=== PATIENT | male | born 1935 | race Caucasian/White ===

== ENCOUNTER → 2018-05-23 | Outpatient (CLI) | payer OTHER | LOC: BHFA 15:00 | PROVIDERS: ATTEND Internal Medicine Cardiovascular Disease | DX: I25.10 Atherosclerotic heart disease of native coronary artery without angina pectoris (principal); I10 Essential (primary) hypertension ==

== ENCOUNTER 2019-01-03 10:47 | Inpatient (IN) | payer OTHER ==
[2019-01-03] MEDS ORDERED: LR 1,000 ML IV ONE (11:25)
--- NOTE | 2019-01-03 11:37 | PDHPUP ---
History & Physical Update H&P update statement: This history and physical update is based on an assessment of the patient which was completed after admission or registration (within 24 hours), but prior to the surgery/procedure. H&P update: H&P reviewed & patient examined, no change in patient's condition since H&P completed
[2019-01-03] MEDS ORDERED: cefOXitin SODIUM 2 GM in NS 100 ML IV ONE (13:00)
[2019-01-03] MEDS ORDERED: BUPIVACAINE 0.5% 30 ML SDV ONE (15:20)
[2019-01-03] MEDS ORDERED: HEPARIN 1000 UNIT/1 ML MDV ONE (15:20)
[2019-01-03] MEDS ORDERED: ceFAZolin 1 GM/5 ML SYR ONE (15:20)
--- NOTE | 2019-01-03 15:34 | PDANEPAE ---
ANE History of Present Illness colon mass, here for excision ANE Past Medical History - Cardiovascular History Hx Hypertension: Yes Hx Arrhythmias: No Hx Chest Pain: No Hx Coronary Artery / Peripheral Vascular Disease: Yes Hx CHF / Valvular Disease: No Hx Palpitations: No - Pulmonary History Hx COPD: No Hx Asthma/Reactive Airway Disease: No Hx Recent Upper Respiratory Infection: No Hx Oxygen in Use at Home: No Hx Sleep Apnea: No - Neurologic History Hx Cerebrovascular Accident: No Hx Seizures: No Hx Dementia: No - Endocrine History Hx Diabetes: Yes - Renal History Hx Renal Disorders: No - Liver History Hx Hepatic Disorders: No - Neurological & Psychiatric Hx Hx Neurological and Psychiatric Disorders: No - Cancer History Hx Cancer: Yes Cancer History Comment: Bladder - Congenital Disorder History Hx Congenital Disorders: No - Chronic Pain History Chronic Pain: No - Surgical History Prior Surgeries: CABG 2005. Left knee ANE Review of Systems Review of Systems: - Exercise capacity METS (RN): 4 METS ANE Patient History - Allergies Allergies/Adverse Reactions: No Known Allergies Allergy (Verified 12/30/18 11:04) - Home Medications Home Medications: Aspirin [Aspirin 81mg (*)] 81 mg PO HS 11/14/14 [Last Taken 01/02/19] Atorvastatin Calcium [Lipitor 20 mg (*)] 20 mg PO DAILY 11/14/14 [Last Taken 08/12] Metoprolol Succinate Xr [Toprol Xl 25 mg (*)] 25 mg PO DAILY 11/14/14 [Last Taken 01/01/19] Ascorbic Acid [Vitamin C 500 mg (*)] 500 mg PO DAILY 12/30/18 [Last Taken ] Glucosamine Sulfate [Glucosamine Sulfate 500 MG (*)] 500 mg PO DAILY 12/30/18 [ Last Taken 01/01/19] Herbals/Supplements -Info Only 1 ea PO DAILY 12/30/18 [Last Taken 01/01/19] Multivitamins [Multivitamin (*)] 1 each PO DAILY 12/30/18 [Last Taken 01/01/19] Omeprazole 40 mg PO DAILY 12/30/18 [Last Taken 01/02/19] metFORMIN HCL [Glucophage 500 mg (*)] 500 mg PO BIDMEAL 12/30/18 [Last Taken 09/12] prednisoLONE ACET 1% [Pred Forte 1% (*)] 1 drops LEFTEYE DAILY PRN 12/30/18 [ Last Taken 01/02/19] - NPO status NPO Since - Liquids (Date): 01/02/19 NPO Since - Liquids (Time): 20:00 NPO Since - Solids (Date): 01/01/19 NPO Since - Solids (Time): 18:00 - Smoking Hx Smoking Status: Never smoked - Family Anes Hx Family Hx Anesthesia Complications: none ANE Labs/Vital Signs - Labs Result Diagrams: 01/03/19 12:00 01/03/19 12:00 - Vital Signs Blood Pressure: 130/68 Heart Rate: 86 Respiratory Rate: 16 O2 Sat (%): 93 Height: 177.8 cm Weight: 92.533 kg ANE Physical Exam - Airway Neck exam: FROM Mallampati Score: Class 2 Mouth exam: normal dental/mouth exam - Pulmonary Pulmonary: no respiratory distress, no rales or rhonchi - Cardiovascular Cardiovascular: regular rate and rhythym, no murmur, rub, or gallop - ASA Status ASA Status: III ANE Anesthesia Plan Anesthesia Plan: general endotracheal anesthesia Regional Anesthesia: single shot NB Total IV Anesthesia: No
[2019-01-03] MEDS ORDERED: MIDAZOLAM 2 MG/2 ML VIAL IVP ONE (15:37)
[2019-01-03] MEDS ORDERED: MIDAZOLAM 2 MG/2 ML VIAL ONE (15:41)
[2019-01-03] MEDS ORDERED: ROCURONIUM 50 MG/5 ML VIAL ONE ×2 (15:49→16:44)
[2019-01-03] MEDS ORDERED: LIDOCAINE 2% 100 MG/5 ML SYR ONE (15:49)
[2019-01-03] MEDS ORDERED: fentaNYL 100 MCG/2 ML INJ ONE ×2 (15:50→16:42)
[2019-01-03] MEDS ORDERED: PROPOFOL 200 MG/20 ML VIAL ONE (15:50)
[2019-01-03] MEDS ORDERED: GLYCOPYRROLATE 0.2 MG/1 ML VIAL ONE (16:34)
[2019-01-03] MEDS ORDERED: ePHEDrine SULFATE 25 MG/5 ML SYR ONE (16:34)
[2019-01-03] MEDS ORDERED: DEXAMETHASONE 4 MG/ML VIAL ONE (16:34)
[2019-01-03] MEDS ORDERED: PHENYLEPHRINE 10 MG/ML SDV ONE (16:34)
[2019-01-03] MEDS ORDERED: ONDANSETRON 4 MG/2 ML VIAL ONE (16:34)
[2019-01-03] MEDS ORDERED: NALOXONE HCL 0.4 MG/ML INJ IVP PRN ×2 (16:56→17:59)
[2019-01-03] MEDS ORDERED: fentaNYL 100 MCG/2 ML INJ IVP PRN (16:56)
[2019-01-03] MEDS ORDERED: ONDANSETRON 4 MG/2 ML VIAL IVP PRN ×2 (16:56→18:01)
[2019-01-03] MEDS ORDERED: HYDROmorphONE/DILAUDID 2 MG/ML INJ IVP PRN (16:56)
[2019-01-03] MEDS ORDERED: SUGAMMADEX SODIUM 200 MG/2 ML VIAL IVP ONE (17:37)
[2019-01-03] MEDS ORDERED: HYDROmorphONE/DILAUDID 6 MG/30 ML PCA IV PRN (17:59)
--- NOTE | 2019-01-03 17:59 | POSTOPPROG ---
Post Op Note Date of Operation: 01/03/19 Surgeon: Jose Swann Marketing Operations Consultant: Millie Valenzuela Anesthesiologist: Luly Joyner/ Aram Rossi Anesthesia: GET(General Endotracheal) Pre-op Diagnosis: R colon CA Post-op Diagnosis: same Procedure: lap assisted R hemicolectomy Findings: large tatooed tumor in specimen, no gross liver mets Inf/Abcess present in the surg proc area at time of surgery?: No EBL: 50-100 Complications: none Bowel Protocol: Yes Clean Closure Performed: Yes Specimen(s): [email or web address]
[2019-01-03] MEDS ORDERED: prednisoLONE ACET 1% 5 ML OPHT.BTL LEFTEYE PRN (18:01)
[2019-01-03] MEDS ORDERED: D50W 25 GM/50 ML SYR IVP PRN (18:03)
--- NOTE | 2019-01-03 18:05 | POSTANESTH ---
Post Anesthetic Evaluation Cardiovascular Status: Similar to Pre-Op Cond Respiratory Status: Similar to Pre-op Cond. Level of Consciousness/Mental Status: Alert and Oriented Pain Control: Adequate, Prn Tx Ordered Nausea/Vomiting Control: Adequate, Prn Tx Ordered Complications Possibly Related to Anesthesia: None Noted
[2019-01-03] MEDS ORDERED: NS 1,000 ML IV SCH (18:15)
--- NOTE | 2019-01-03 19:24 | PDMN ---
Medical Necessity Medical necessity: Pt meets inpt criteria per MD order and [facility] [place] [id number], Bowel Surgery: Colectomy, Partial, with or without Ostomy, by Laparoscopy, IP only , 3 days, pre-appoved for inpt. 83 y/o w/R colon cancer admitted for lap assisted R hemicolectomy and post-op care.
[2019-01-03] MEDS: INSULIN REGULAR HUMAN 100 UNIT/ML UNIT SC SCH (21:34)
[2019-01-03] MEDS: ASPIRIN 81 MG CHEWABLE TAB PO SCH (21:46)
[2019-01-03] MEDS: DOCUSATE SODIUM 100 MG CAP PO SCH (21:47)
[2019-01-04] MEDS: OXYCODONE/APAP 5/325 TAB PO PRN ×5 (01:35→22:05)
[2019-01-04] MEDS: PANTOPRAZOLE SODIUM 40 MG TAB PO SCH (08:47)
[2019-01-04] MEDS: METOPROLOL SUCCINATE XR 25 MG TAB PO SCH (08:47)
[2019-01-04] MEDS: ASCORBIC ACID 500 MG TAB PO SCH (08:48)
[2019-01-04] MEDS: DOCUSATE SODIUM 100 MG CAP PO SCH ×2 (08:48→22:05)
[2019-01-04] MEDS: ATORVASTATIN CALCIUM 20 MG TAB PO SCH (08:48)
[2019-01-04] MEDS: metFORMIN HCL 500 MG TAB PO SCH ×2 (08:48→18:16)
[2019-01-04] MEDS: INSULIN REGULAR HUMAN 100 UNIT/ML UNIT SC SCH ×4 (08:50→23:47)
--- NOTE | 2019-01-04 09:13 | SOAPPROG ---
SOAP Progress Note Assessment/Plan: Assessment/plan: 83 y/o M s/p lap assisted R alexander colectomy POD #1 Path pending. Pain controlled with Percocet and dilaudid pushes. Advance to clear liquid diet. Advised to go slow. Get oob as tolerated. S: Biggest complaint is back pain from hospital bed. Denies passing gas or BM yet. O: Alert Afebrile VSS RRR CTAB Abdomen soft, attp, incisions cdi, +BS 01/04/19 09:13 Objective: Vital Signs Temp Pulse Resp BP Pulse Ox 37.1 C 64 16 126/54 H 94 01/04/19 08:00 01/04/19 08:47 01/04/19 08:00 01/04/19 08:47 01/04/19 08:00 Laboratory Results 01/04/19 04:43 01/04/19 04:43 01/03/19 01/04/19 01/05/19 05:59 05:59 05:59 Intake Total 1760 Output Total 1020 Balance 740 ICD10 Worksheet Patient Problems: Problems Problem Status Onset Fall Acute
--- NOTE | 2019-01-04 20:18 | GOP ---
[f rep st] OPERATIVE REPORT DATE OF OPERATION: 01/03/2019 SURGEON: Jose Swann MD PREOPERATIVE DIAGNOSIS: Cecal colon cancer. POSTOPERATIVE DIAGNOSIS: Cecal colon cancer. PROCEDURE PERFORMED: Laparoscopic assisted right hemicolectomy. FINDINGS: The patient was found to have a relatively large mass in the right colon with some penetration through the wall. There were no obvious lymph node involvements and no evidence of any liver metastasis. ESTIMATED BLOOD LOSS: Less than 25 cc. DESCRIPTION OF PROCEDURE: The patient was taken to the operating room where he received a satisfactory general endotracheal anesthesia by Dr. Joyner and placed in a supine position, prepped and draped in the usual sterile fashion. Anesthesia was also delivered by Dr. Rossi, who took over for Dr. Joyner partly through the case. A periumbilical incision was made. A Veress needle inserted. Pneumoperitoneum was established. Trocar was introduced. Laparoscope introduced. Good visualization was obtained. Two other trocars were placed in the midline above and below the umbilicus. The right colon was then mobilized. The appendix and terminal ileum were freed up by dividing the lateral peritoneal reflections and that extended up along the right colon and around the hepatic flexure. The right transverse colon was freed up from the omentum all with the Harmonic scalpel until the colon could be elevated up. The right colon mesentery was then divided with the Harmonic scalpel and hemoclips and was mobilized up with care to avoid injury to the duodenum and the ureter. After the mobilization was complete, the short 3 inch incision was made in the midline. A wound protector was used in the right colon and tumor and terminal ileum were brought up through the incision. Any mesenteric dissection was completed with the Harmonic scalpel and the terminal ileum and the right transverse colon were divided with the PRAVEEN staplers and the specimen was sent to pathology. [id number] anastomosis was then made between the terminal ileum and the right colon with a PRAVEEN stapler. Close application of the stapler was used to close the defect which was then reinforced with interrupted 3-0 Vicryl sutures and the staple line was covered with a portion of the mesentery which was closed with a running 3-0 Vicryl suture. This created a good 3 fingerbreadth anastomosis. Hemostasis was assured. The specimen was returned into the abdomen. The wound was irrigated. The wound protector was removed and then a clean closure technique was then used with new gowns and gloves, instruments and drapes and the abdomen was closed with a running #1 PDS suture for the linea alba. The wound was infiltrated with 0.5% Marcaine. Subcu was closed with 3-0 Vicryl and the skin with a 4-0 Monocryl subcuticular stitch. The other trocar sites were closed with 4-0 Monocryl subcuticular sutures and all wounds were infiltrated with 0.5% Marcaine. He tolerated the procedure well , taken to recovery room in good condition. COMPLICATIONS: None. Copy requested to: Dr. De Guzman /[id number]/MODL MTDD
[2019-01-04] MEDS: ASPIRIN 81 MG CHEWABLE TAB PO SCH (22:05)
[2019-01-05] MEDS: METOPROLOL SUCCINATE XR 25 MG TAB PO SCH (09:14)
[2019-01-05] MEDS: DOCUSATE SODIUM 100 MG CAP PO SCH ×2 (09:16→22:43)
[2019-01-05] MEDS: metFORMIN HCL 500 MG TAB PO SCH ×2 (09:16→18:36)
[2019-01-05] MEDS: ATORVASTATIN CALCIUM 20 MG TAB PO SCH (09:16)
[2019-01-05] MEDS: ASCORBIC ACID 500 MG TAB PO SCH (09:16)
[2019-01-05] MEDS: PANTOPRAZOLE SODIUM 40 MG TAB PO SCH (09:17)
[2019-01-05] MEDS: OXYCODONE/APAP 5/325 TAB PO PRN ×3 (09:17→22:43)
[2019-01-05] MEDS: ENOXAPARIN 40 MG/0.4 ML SYR SC SCH (09:19)
[2019-01-05] MEDS: INSULIN REGULAR HUMAN 100 UNIT/ML UNIT SC SCH ×4 (09:24→23:36)
--- NOTE | 2019-01-05 09:38 | SOAPPROG ---
SOAP Progress Note Assessment/Plan: Assessment/plan: 83 y/o M s/p lap assisted R alexander colectomy Path pending. Pain controlled with Percocet and dilaudid pushes. Continue clears. Get oob as tolerated. S: Sitting up in chair. Denies passing gas or BM. O: Alert Afebrile VSS RRR CTAB Abdomen soft, attp, incisions cdi, +BS 01/05/19 09:38 Objective: Vital Signs Temp Pulse Resp BP Pulse Ox 36.5 C 72 16 133/67 H 96 01/05/19 07:47 01/05/19 09:14 01/05/19 07:47 01/05/19 09:14 01/05/19 07:47 Laboratory Results 01/04/19 04:43 01/04/19 04:43 01/04/19 01/05/19 01/06/19 05:59 05:59 05:59 Intake Total 1760 450 240 Output Total 1020 Balance 740 450 240 ICD10 Worksheet Patient Problems: Problems Problem Status Onset Fall Acute
--- NOTE | 2019-01-05 16:57 | ASMTCMCOM ---
CM Note CM Note Notes: Reviewed chart, pt admitted for scheduled surgery. No therapies ordered, anticipate pt will dc home when medically stable. CM available for any changes. DC Plan: Independent Date Signed: 01/05/2019 04:57 PM Electronically Signed By:Ashley Valenzuela RN
[2019-01-05] MEDS: ASPIRIN 81 MG CHEWABLE TAB PO SCH (22:43)
[2019-01-06] MEDS: OXYCODONE/APAP 5/325 TAB PO PRN ×2 (05:20→17:53)
[2019-01-06] MEDS: INSULIN REGULAR HUMAN 100 UNIT/ML UNIT SC SCH ×4 (08:19→23:34)
[2019-01-06] MEDS: ENOXAPARIN 40 MG/0.4 ML SYR SC SCH (08:19)
[2019-01-06] MEDS: DOCUSATE SODIUM 100 MG CAP PO SCH ×2 (08:20→23:37)
[2019-01-06] MEDS: ASCORBIC ACID 500 MG TAB PO SCH (08:20)
[2019-01-06] MEDS: ATORVASTATIN CALCIUM 20 MG TAB PO SCH (08:20)
[2019-01-06] MEDS: metFORMIN HCL 500 MG TAB PO SCH ×2 (08:20→17:46)
[2019-01-06] MEDS: METOPROLOL SUCCINATE XR 25 MG TAB PO SCH (08:20)
[2019-01-06] MEDS: PANTOPRAZOLE SODIUM 40 MG TAB PO SCH (08:20)
[2019-01-06] MEDS ORDERED: BISACODYL 10 MG SUPP PR ONE (09:02)
--- NOTE | 2019-01-06 13:43 | SOAPPROG ---
SOAP Progress Note Assessment/Plan: Assessment/plan: 83 y/o M s/p lap assisted R alexander colectomy Path pending. Pain controlled with Percocet and dilaudid pushes. Get oob as tolerated. Dulcolax suppository. Advance to light diet. Dispo: likely home over the weekend. S: Sitting up in chair. Denies passing gas or BM. Pain controlled. O: Alert Afebrile VSS RRR CTAB Abdomen soft, attp, incisions cdi, +BS 01/06/19 13:42 Objective: Vital Signs Temp Pulse Resp BP Pulse Ox 36.6 C 72 18 125/62 H 95 01/06/19 07:13 01/06/19 07:13 01/06/19 07:13 01/06/19 07:13 01/06/19 07:13 Laboratory Results 01/04/19 04:43 01/04/19 04:43 01/05/19 01/06/19 01/07/19 05:59 05:59 05:59 Intake Total 450 1540 Output Total 1550 Balance 450 -10 ICD10 Worksheet Patient Problems: Problems Problem Status Onset Fall Acute
[2019-01-06] MEDS: ASPIRIN 81 MG CHEWABLE TAB PO SCH (23:37)
[2019-01-07] MEDS: INSULIN REGULAR HUMAN 100 UNIT/ML UNIT SC SCH ×4 (08:13→21:39)
[2019-01-07] MEDS: ENOXAPARIN 40 MG/0.4 ML SYR SC SCH (09:12)
[2019-01-07] MEDS: PANTOPRAZOLE SODIUM 40 MG TAB PO SCH (09:13)
[2019-01-07] MEDS: METOPROLOL SUCCINATE XR 25 MG TAB PO SCH (09:13)
[2019-01-07] MEDS: metFORMIN HCL 500 MG TAB PO SCH ×2 (09:13→18:05)
[2019-01-07] MEDS: DOCUSATE SODIUM 100 MG CAP PO SCH ×3 (09:13→19:54)
[2019-01-07] MEDS: ATORVASTATIN CALCIUM 20 MG TAB PO SCH (09:14)
[2019-01-07] MEDS: ASCORBIC ACID 500 MG TAB PO SCH (09:14)
--- NOTE | 2019-01-07 10:34 | SOAPPROG ---
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 PT3 N0. Pain controlled with PO pain meds Passing flatus and having bowel movements Advanced to regular diet Dispo: Home in a.m.. Seen with Dr. Mercado S: Sitting up in chair. Passing both gas and bowel movements. Pain controlled. Hungry, but afraid to eat because of some incontinence of stool this morning O: General: Sitting upright in chair, comfortable, no acute distress Respiratory: No increased work of breathing Abdomen: Bowel sounds present, abdomen soft, nondistended and non tender. Incision clean, dry and intact without evidence of infection Skin: Warm and dry. Psych: Mood and affect normal Neuro: Grossly intact 01/07/19 10:35 Objective: Vital Signs Temp Pulse Resp BP Pulse Ox 36.5 C 85 16 136/65 H 93 01/07/19 07:34 01/07/19 07:34 01/07/19 07:34 01/07/19 07:34 01/07/19 07:34 Laboratory Results 01/04/19 04:43 01/04/19 04:43 01/06/19 01/07/19 01/08/19 05:59 05:59 05:59 Intake Total 1540 1000 Output Total 1550 Balance -10 1000 ICD10 Worksheet Patient Problems: Problems Problem Status Onset Fall Acute
--- NOTE | 2019-01-07 13:53 | ASMTCMCOM ---
CM Note CM Note Notes: Plan remains the same, no therapies ordered. Anticipate he will dc home w/support of familly when medically stable. CM available for any changes. DC Plan: Independent Date Signed: 01/07/2019 01:53 PM Electronically Signed By:Ashley Valenzuela RN
[2019-01-07] MEDS: ASPIRIN 81 MG CHEWABLE TAB PO SCH (21:43)
--- NOTE | 2019-01-08 08:24 | SOAPPROG ---
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 PT3 N0. Pain controlled with PO pain meds Passing flatus and having bowel movements Advanced to regular diet Dispo: DC home. FU 1-[address] Swann. S: Sitting up in chair. Passing both gas and bowel movements. Pain controlled. Less frequent BMs O: General: Sitting upright in chair, comfortable, no acute distress Respiratory: No increased work of breathing Abdomen: Bowel sounds present, abdomen soft, nondistended and non tender. Incision clean, dry and intact without evidence of infection Skin: Warm and dry. Psych: Mood and affect normal Neuro: Grossly intact Objective: Vital Signs Temp Pulse Resp BP Pulse Ox 36.9 C 73 16 124/53 H 93 01/08/19 04:00 01/08/19 04:00 01/08/19 04:00 01/08/19 04:00 01/08/19 04:00 Laboratory Results 01/04/19 04:43 01/04/19 04:43 01/07/19 01/08/19 01/09/19 05:59 05:59 05:59 Intake Total 1000 Output Total 100 Balance 1000 -100 ICD10 Worksheet Patient Problems: Problems Problem Status Onset Fall Acute
[2019-01-08 08:26] VITALS: BP 130/56
[2019-01-08] MEDS: INSULIN REGULAR HUMAN 100 UNIT/ML UNIT SC SCH (08:51)
[2019-01-08] MEDS: ATORVASTATIN CALCIUM 20 MG TAB PO SCH (09:23)
[2019-01-08] MEDS: ASCORBIC ACID 500 MG TAB PO SCH (09:23)
[2019-01-08] MEDS: METOPROLOL SUCCINATE XR 25 MG TAB PO SCH (09:23)
[2019-01-08] MEDS: DOCUSATE SODIUM 100 MG CAP PO SCH (09:23)
[2019-01-08] MEDS: ENOXAPARIN 40 MG/0.4 ML SYR SC SCH (09:23)
[2019-01-08] MEDS: metFORMIN HCL 500 MG TAB PO SCH (09:23)
[2019-01-08] MEDS: PANTOPRAZOLE SODIUM 40 MG TAB PO SCH (09:23)
--- NOTE | 2019-01-08 11:36 | ASDISCHSUM ---
Discharge Information Plan Status:Home with No Needs Medically Cleared to Leave:01/08/2019 Discharge Date:01/08/2019 CM D/C Disposition:Home, Routine, Self-Care ADT D/C Disposition:Home, Routine, Self-Care Projected Discharge Date:01/08/2019 Transportation at D/C:Family Discharge Delay Reason: Follow-Up Date:01/08/2019 Discharge Slot: Final Diagnosis: Placement Information Patient Contact Information Contact Name:DOUGLAS Relationship:Olivier Address:[address] City:[place] Alternate Phone: [facility]/Zip Code:[place] [address] Email: Financial Information Financial Class:Medicare Advantage Plans Primary Plan Desc:[employer] MEDICARE ADV Primary Plan Number:[id number] Secondary Plan Desc: Secondary Plan Number: Assessment Information LACE LACE Length of stay for Answers: 4-6 days current admission Acuity / Level of Answers: Yes Care: Did the patient have an inpatient admission? Comorbidities - select Answers: Any tumor (including all that apply lymphoma or leukemia) Coronary Artery Disease Diabetes (uncontrolled or controlled) Other Notes: HTN # of Emergency department Answers: 0 visits in the last 6 months Score: 13 Date Signed: 01/08/2019 11:35 AM Electronically Signed By:KAMRON Sloan [facility] CM Progress Note CM Note CM Note Notes: Reviewed chart, pt admitted for scheduled surgery. No therapies ordered, anticipate pt will dc home when medically stable. CM available for any changes. DC Plan: Independent Date Signed: 01/05/2019 04:57 PM Electronically Signed By:Ashley Valenzuela RN [facility] CM Progress Note CM Note CM Note Notes: Plan remains the same, no therapies ordered. Anticipate he will dc home w/support of familly when medically stable. CM available for any changes. DC Plan: Independent Date Signed: 01/07/2019 01:53 PM Electronically Signed By:Ashley Valenzuela RN Case Management Discharge Plan Note Case Management Discharge Discharge Order Complete? Answers: Yes Patient to Obtain Answers: via Family Medications Transportation Arranged Answers: Family/Friends Discharge Comments Notes: Pt is discharging home today with family and no CM needs. He will follow up with Dr Swann in 1-2 weeks. IM signed, copy to pt and in chart. Date Signed: 01/08/2019 11:35 AM Electronically Signed By:KAMRON Sloan Intervention Information
--- NOTE | 2019-01-09 07:37 | GDS ---
[f rep st] DISCHARGE SUMMARY ADMITTING DIAGNOSIS: Right colon cancer. SECONDARY DIAGNOSES: Hypertension, coronary artery disease, type 2 diabetes, hyperlipidemia, sleep a pnea. REASON FOR ADMISSION: 83-year-old man who was found to have a right colon mass. This was biopsied o n colonoscopy, found to be adenocarcinoma. He presents for surgical intervention, pain control, and observation. HOSPITAL COURSE: He was taken to the operating room by Dr. Swann on 01/03/2019 for laparoscopic-assi sted right hemicolectomy. At the time of surgery, no liver lesions were noted. At the time of disch arge, pathology showed invasive moderately differentiated adenocarcinoma, 0/26 lymph nodes involved, pathologic T3 N0. On postoperative day #1, he was advanced to a clear liquid diet. By postoperative day #4, he had full return of bowel function and was advanced to a regular diet. On the day of disc harge, postop day #5, his pain was well controlled with oral pain medication. He was ambulating inde pendently, tolerating a regular diet, and was ready for discharge. CONDITION: Stable to discharge home in stable condition. DISCHARGE MEDICATIONS: He will be sent home with prescription for Percocet. Instructed to resume ho me medications. Please see EMR for further detail. DISCHARGE INSTRUCTIONS AND FOLLOWUP: He will avoid heavy lifting, pushing, or pulling x6 weeks. May shower. Follow up in 1-[address] Swann. Call with any worsening symptoms, questions or conc erns. /[id number]/MODL
== END 2019-01-08 11:55 | disposition home or self-care (01) | DRG 330 ==
LOC: F1N 11:17 → F3E 11:17 → UNDOADMIN 11:17 → F3E 19:21
PROVIDERS: ADMIT Surgery; ATTEND Surgery
PROC: 0DTF4ZZ Resection of Right Large Intestine, Percutaneous Endoscopic Approach (ICD-10-PCS; principal; 2019-01-03 14:15)
DX: C18.2 Malignant neoplasm of ascending colon (principal); C18.0 Malignant neoplasm of cecum; I10 Essential (primary) hypertension; I25.10 Atherosclerotic heart disease of native coronary artery without angina pectoris; E11.9 Type 2 diabetes mellitus without complications; E78.5 Hyperlipidemia, unspecified; G47.33 Obstructive sleep apnea (adult) (pediatric)
CPT/HCPCS: J0694; J1100; J1650; J2001; J2250; J2370; J2405; J2704; J3010